=== PATIENT | female | born 1945 | race Caucasian/White ===

== ENCOUNTER 2017-02-21 13:56 | Emergency (ER) | payer OTHER ==
[~2017-02-21] VITALS: Ht 154.9 cm; Wt 54.4 kg
[2017-02-21 14:01] VITALS: BP_SYST 146
--- NOTE | 2017-02-21 14:06 | NUR ---
Patient to ER bed 8 to gown for evaluation. Side rails up. Report received from João PALMA
--- NOTE | 2017-02-21 14:10 | NUR ---
ER at bedside examining patient.
--- NOTE | 2017-02-21 14:12 | NUR ---
Pt presents to Ed c/o R second toe redness.Pt denies pain and injury.Pt h/o Htn,hyperlipidemia,depression and DM.
[2017-02-21] MEDS ORDERED: cefTRIAXone 1 GM VIAL IM ONE (14:30)
--- NOTE | 2017-02-21 14:35 | NUR ---
pt medciated tolerated well.
[2017-02-21] MEDS ORDERED: LIDOCAINE 1%, 20 ML MDV 20 ML ONE (14:52)
--- NOTE | 2017-02-21 15:22 | NUR ---
Patient given written and verbal discharge instructions and verbalizes understanding. ER MD discussed with patient the results and treatment provided. Patient in stable condition. ID arm band removed. Rx of Keflex given. Patient educated on pain management and to follow up with PMD. Pain Scale 0 Opportunity for questions provided and answered.
== END 2017-02-21 15:22 | disposition home or self-care (01) ==
LOC: SED 13:56
DX: L03.115 Cellulitis of right lower limb (principal); E11.9 Type 2 diabetes mellitus without complications; Z88.5 Allergy status to narcotic agent; Z90.710 Acquired absence of both cervix and uterus
CPT/HCPCS: 73630; 96372; 99284; J0696; J2001

== ENCOUNTER 2021-12-23 01:53 | Inpatient (IN) | payer OTHER ==
[~2021-12-23 01:53] MED LIST: CEVI30CA4 PO; FLAX100031 PO; GLIP10TA11 PO; GLU850 PO; LIP40 PO; LOSA25TA3 PO; SERT-436 PO; VIT1TABL94 PO; VITD2000 PO
== END 2021-12-24 20:33 | disposition home health service (06) | DRG 562 ==
LOC: SMU 01:53
PROVIDERS: ADMIT Family Medicine; ATTEND Family Medicine
DX: S82.102A Unspecified fracture of upper end of left tibia, initial encounter for closed fracture (principal); N17.0 Acute kidney failure with tubular necrosis; E11.9 Type 2 diabetes mellitus without complications; I10 Essential (primary) hypertension; D64.9 Anemia, unspecified; W18.39XA Other fall on same level, initial encounter; Z79.899 Other long term (current) drug therapy; Y93.89 Activity, other specified; Y92.89 Other specified places as the place of occurrence of the external cause; Y99.8 Other external cause status
CPT/HCPCS: 36415; 70450-TC; 72125-TC; 73502; 73564; 73590-TC; 76376; 80053; 82962; 85025; 97116-GP; 97530-GP; 99285; J1815; J1885

== ENCOUNTER 2022-05-06 16:06 | Emergency (ER) | payer OTHER ==
[~2022-05-06] VITALS: Ht 154.9 cm; Wt 53.1 kg
[2022-05-06 16:20] VITALS: BP_SYST 175
[2022-05-06 17:06] LABS: ACETONE, SERUM NEGATIVE (NEGATIVE)
[2022-05-06 17:07] LABS: BASOPHILS % (AUTO) 0.5 % (0.0-2.0); EOSINOPHILS # (AUTO) 0.2 K/uL (0.0-0.4); EOSINOPHILS % (AUTO) 2.1 % (0.0-4.0); HEMATOCRIT 31.7 % (36-48); LYMPHOCYTES # (AUTO) 1.5 K/uL (1.0-5.5); LYMPHOCYTES % (AUTO) 17.2 % (20.5-51.5); MEAN CORPUSCULAR VOLUME 85 fL (79.0-98.0); MONOCYTES # (AUTO) 0.6 K/uL (0.0-1.0); MONOCYTES % (AUTO) 6.5 % (1.7-9.3); NEUTROPHILS # (AUTO) 6.5 K/uL (1.8-7.7); NEUTROPHILS % (AUTO) 73.7 % (40.0-70.0); PLATELET COUNT (AUTO) 242 K/uL (130-430); RED BLOOD CELL COUNT(AUTO) 3.75 MIL/uL (4.2-6.2); RED CELL DISTRIBUTION WIDTH 12.9 % (9.0-15.0); WHITE BLOOD COUNT (AUTO) 8.8 K/uL (4.8-10.8)
[2022-05-06 17:25] LABS: ANION GAP 10 (5-15); CALCIUM 10.6 mg/dL (8.4-11.0); CHLORIDE 95 mmol/L (98-107); CREATININE 1.78 mg/dL (0.55-1.30); POTASSIUM 4.1 mmol/L (3.5-5.1); UREA NITROGEN, BLOOD 40 mg/dL (8-21)
[2022-05-06 17:26] LABS: ALANINE AMINOTRANSFERASE 27 U/L (12-78); ALBUMIN 3.9 g/dL (3.4-4.8); AMYLASE 35 U/L (0-100); ASPARTATE AMINOTRANSFERASE 11 U/L (10-37); LIPASE 64 U/L (73-393); TOTAL BILIRUBIN 0.4 mg/dL (0.0-1.0)
[2022-05-06 17:38] LABS: GLUCOSE 525 mg/dL (70-99)
[2022-05-06] MEDS ORDERED: INSULIN REGULAR, HUMAN 100 UNITS/ML, 3 ML VIAL SUBCUT ONE (18:15)
[2022-05-06] MEDS ORDERED: INSULIN REGULAR, HUMAN 10 UNITS/0.1 ML, 3 ML VIAL ONE (18:16)
[2022-05-06] MEDS ORDERED: NACL 0.9% 1,000 ML IV ONE (18:30)
[2022-05-06 19:16] LABS: BILIRUBIN,URINE NEGATIVE (NEGATIVE); BLOOD, URINE NEGATIVE (NEGATIVE); COLOR,URINE YELLOW (YELLOW); GLUCOSE,URINE 3+ (NEGATIVE); KETONES,URINE 1+ (NEGATIVE); NITRITE, URINE NEGATIVE (NEGATIVE); PH,URINE 5.5 (5.0-8.0); PROTEIN URINE NEGATIVE (NEGATIVE); UROBILINOGEN,URINE 0.2 (0.2-1.0)
[2022-05-06 19:36] LABS: CLARITY/URINE HAZY (CLEAR); LEUKOCYTE ESTERASE ,URINE TRACE (NEGATIVE)
[2022-05-06 19:37] LABS: BACTERIA,URINE FEW /HPF (None Seen); MUCUS,URINE None Seen /LPF (None Seen); RBC,URINE NONE SEEN /HPF (0-3)
[2022-05-06 22:50] VITALS: BP_SYST 153
== END 2022-05-06 22:50 | disposition home or self-care (01) ==
LOC: SED 16:06
DX: E11.65 Type 2 diabetes mellitus with hyperglycemia (principal); N28.9 Disorder of kidney and ureter, unspecified
CPT/HCPCS: 99284; 96360; 80053; 81000; 82009; 82150; 82962; 83690; 85025; 84484; 36415; 93005; 83605; J1815; J7030

== ENCOUNTER 2022-06-23 08:45 | Outpatient (CLI) | payer OTHER | END 2022-06-23 20:39 | disposition home or self-care (01) | LOC: SUS 08:45 | PROVIDERS: ATTEND Internal Medicine | DX: N18.30 Chronic kidney disease, stage 3 unspecified (principal); R33.9 Retention of urine, unspecified | CPT/HCPCS: 76770 ==

== ENCOUNTER 2022-06-23 10:22 | Emergency (ER) | payer OTHER ==
[~2022-06-23] VITALS: Ht 170.2 cm; Wt 77.1 kg
[2022-06-23 10:44] VITALS: BP_SYST 133
--- NOTE | 2022-06-23 10:48 | NUR ---
Patient to ER bed 4 to gown for evaluation. Side rails up. Report given to KIARA PALMA
--- NOTE | 2022-06-23 11:04 | NUR ---
Pt present to ED with c/o lightheadedness. Hx of DM. AOx4 GCS 15. denies CP or SOB. ED physician at bedside assessing pt.
[2022-06-23 11:42] LABS: BASOPHILS # (AUTO) 0.1 K/uL (0.0-0.2); BASOPHILS % (AUTO) 1.1 % (0.0-2.0); EOSINOPHILS # (AUTO) 0.3 K/uL (0.0-0.4); EOSINOPHILS % (AUTO) 2.9 % (0.0-4.0); HEMATOCRIT 31.2 % (36-48); HEMOGLOBIN 10.9 g/dL (12.0-16.0); LYMPHOCYTES # (AUTO) 0.7 K/uL (1.0-5.5); LYMPHOCYTES % (AUTO) 7.5 % (20.5-51.5); MEAN CORPUSCULAR HEMOGLOBIN 30 pg (27-31); MEAN CORPUSCULAR HGB CONC 35 % (32-36); MEAN CORPUSCULAR VOLUME 85 fL (79.0-98.0); MONOCYTES # (AUTO) 0.5 K/uL (0.0-1.0); MONOCYTES % (AUTO) 5.5 % (1.7-9.3); NEUTROPHILS # (AUTO) 7.9 K/uL (1.8-7.7); PLATELET COUNT (AUTO) 228 K/uL (130-430); RED BLOOD CELL COUNT(AUTO) 3.66 MIL/uL (4.2-6.2); RED CELL DISTRIBUTION WIDTH 13.7 % (9.0-15.0); WHITE BLOOD COUNT (AUTO) 9.5 K/uL (4.8-10.8)
[2022-06-23 11:52] LABS: ANION GAP 6 (5-15); CALCIUM 9.5 mg/dL (8.4-11.0); CHLORIDE 106 mmol/L (98-107); CREATININE 1.54 mg/dL (0.55-1.30); GLUCOSE 169 mg/dL (70-99); UREA NITROGEN, BLOOD 29 mg/dL (8-21)
[2022-06-23 11:59] LABS: ALANINE AMINOTRANSFERASE 95 U/L (12-78); ALBUMIN 3.6 g/dL (3.4-4.8); ASPARTATE AMINOTRANSFERASE 56 U/L (10-37); TOTAL BILIRUBIN 0.2 mg/dL (0.0-1.0)
[2022-06-23 12:13] VITALS: BP_SYST 128
== END 2022-06-23 12:13 | disposition home or self-care (01) ==
LOC: SED 10:22
DX: E11.649 Type 2 diabetes mellitus with hypoglycemia without coma (principal); E16.2 Hypoglycemia, unspecified; R53.1 Weakness; Z79.899 Other long term (current) drug therapy
CPT/HCPCS: 36415; 80053; 82962; 85025; 99283